=== PATIENT | female | born 1980 | race Caucasian/White ===

== ENCOUNTER 2018-12-12 22:00 | Emergency (ER) | payer OTHER ==
[2018-12-13] MEDS: HYDROCODONE/APAP (10/325) TAB PO (00:06)
== END 2018-12-13 00:33 | disposition home or self-care (01) ==
LOC: FTE 22:00
DX: M54.5 Low back pain (principal); F17.210 Nicotine dependence, cigarettes, uncomplicated
CPT/HCPCS: 99283; Z7502